=== PATIENT | male | born 1960 | race Caucasian/White ===

== ENCOUNTER 2018-03-14 11:14 | Outpatient (REF) | payer MEDICAID, SELFPAY ==
[2018-03-14 21:55] LABS: ALT 40 U/L (12-78); Alkaline Phosphatase 47 U/L (46-116); Anion Gap 10.3 mmol/L (3-11); BUN 14 mg/dL (7-18); Bilirubin, Total 0.4 mg/dL (0.2-1.0); CO2 25.7 mmol/L (21.0-32.0); CREATININE 0.96 mg/dL (0.70-1.30); Calcium 9.4 mg/dL (8.5-10.1); Chloride 102 mmol/L (98-107); Cholesterol 216 mg/dL (50-200); Glucose 217 mg/dL (70-100); HDL Cholesterol 45 mg/dL (40-60); LDL CHOLESTEROL 151 mg/dL (<100); Potassium 4.6 mmol/L (3.5-5.1); Sodium 138 mmol/L (136-145); TSH (W/Ref FT4) 1.89 uIU/mL (0.358-3.74); Total Protein 7.4 g/dL (6.4-8.2); Triglyceride 112 mg/dL (30-150)
[2018-03-14 22:05] LABS: AST 15 U/L (15-37)
[2018-03-14 23:03] LABS: Hemoglobin A1C 9.2 % (4.5-6.2)
== END 2018-03-14 11:34 ==
LOC: NCHCN 11:14
PROVIDERS: PCP Physician Assistant Medical; Visit Provider Physician Assistant Medical
DX: Z13.29 Encounter for screening for other suspected endocrine disorder (principal); Z13.1 Encounter for screening for diabetes mellitus; Z13.228 Encounter for screening for other metabolic disorders; Z13.220 Encounter for screening for lipoid disorders; Z00.00 Encounter for general adult medical examination without abnormal findings
CPT/HCPCS: 80053; 80061; 83721; 83036; 84443

== ENCOUNTER 2018-03-27 01:28 | Outpatient (CLI) | payer MEDICAID, SELFPAY ==
--- NOTE | 2018-03-27 11:00 | DIABASSESS_ITS ---
DESCRIPTION/ASSESSMENT: Jose Luis Brown presents with his with newly diagnosed type 2 diabetes with strong family history. Food Guidelines - Jose Luis states he has lost 18 pounds over the past 9 days by cutting back on sweets, portions and carbohydrate foods. His follows a keto-diet and he is eating her cooking. 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 Medication - he has started Metformin XR now at 500mg twice daily. A1c 9.2 Monitoring - does not have a glucometer. Desires monitoring. Risks/Related health history - he takes no other medication. He declines immunizations. Coping - denies stress other than usual family and work stress. Denies depression. INTERVENTION: DSME is provided in the following AADE 7 areas based on patients interest and assessment of needs: Food Guidelines - reviewed food guide in relation to his usual food intake. Physical Activity - discussed benefits and small changes initially. Medication - explained action of medication; dosing. Monitoring - reviewed procedure for monitoring blood sugar. He is monitored here with random blood sugar 159 with only coffee. Explained results re: goals and meaningful monitoring. Prevention - reviewed foot care; sick day care; immunizations rationale. Jose Luis and his are engaged in the conversation and encouraged to continue ACTION PLAN: Jose Luis will continue his current food plan and pay attention to carbohydrate content of meals and snacks. He will consider increased physical activity He will monitor his blood sugars based on the question he wishes to answer once he is monitoring comfortably This provider called [facility] for recommendation for Rx for glucometer, strips and lancets. Individual DSME/T __1__ units billed TIME IN: 1100 OUT: 1150 No DM group education series being offered at this time.
== END 2018-03-27 01:48 ==
PROVIDERS: PCP Physician Assistant Medical; Visit Provider Dietitian, Registered
DX: E11.9 Type 2 diabetes mellitus without complications (principal); Z71.3 Dietary counseling and surveillance
CPT/HCPCS: G0108

== ENCOUNTER 2018-09-25 20:53 | Outpatient (REF) | payer MEDICAID, SELFPAY ==
[2018-09-25 21:58] LABS: Calculated LDL 141; Cholesterol 204 mg/dL (50-200); HDL Cholesterol 47 mg/dL (40-60); Triglyceride 84 mg/dL (30-150)
[2018-09-25 22:15] LABS: Hemoglobin A1C 6.5 % (4.5-6.2)
== END 2018-09-25 21:13 ==
LOC: NCHCN 20:53
PROVIDERS: PCP Physician Assistant Medical; Visit Provider Physician Assistant Medical
DX: E11.9 Type 2 diabetes mellitus without complications (principal); E78.5 Hyperlipidemia, unspecified
CPT/HCPCS: 80061; 83721; 83036

== ENCOUNTER 2019-01-09 13:24 | Outpatient (REF) | payer MEDICAID, SELFPAY ==
[2019-01-09 22:01] LABS: ALT 32 U/L (16-63); AST 12 U/L (15-37); Albumin 4.1 g/dL (3.4-5.0); Alkaline Phosphatase 42 U/L (46-116); Anion Gap 9.6 mmol/L (3-11); BUN 14 mg/dL (7-18); Bilirubin, Total 0.5 mg/dL (0.2-1.0); CO2 27.4 mmol/L (21.0-32.0); CREATININE 0.91 mg/dL (0.70-1.30); Calcium 9.2 mg/dL (8.5-10.1); Calculated LDL 85 mg/dL; Chloride 103 mmol/L (98-107); Cholesterol 152 mg/dL (50-200); Glucose 125 mg/dL (70-100); HDL Cholesterol 49 mg/dL (40-60); Potassium 5.2 mmol/L (3.5-5.1); Sodium 140 mmol/L (136-145); Total Protein 7.3 g/dL (6.4-8.2); Triglyceride 94 mg/dL (30-150)
== END 2019-01-09 13:44 ==
LOC: NCHCN 13:24
PROVIDERS: PCP Physician Assistant Medical; Visit Provider Physician Assistant Medical
DX: E78.5 Hyperlipidemia, unspecified (principal)
CPT/HCPCS: 80053; 80061

== ENCOUNTER 2019-12-18 15:49 | Outpatient (REF) | payer MEDICAID, SELFPAY ==
[2019-12-18 19:51] LABS: ALT 27 U/L (16-63); AST 13 U/L (15-37); Albumin 3.9 g/dL (3.4-5.0); Alkaline Phosphatase 39 U/L (46-116); Anion Gap 6.1 mmol/L (3-11); BUN 15 mg/dL (7-18); Bilirubin, Total 0.4 mg/dL (0.2-1.0); CO2 28.9 mmol/L (21.0-32.0); CREATININE 0.79 mg/dL (0.70-1.30); Calcium 8.9 mg/dL (8.5-10.1); Calculated LDL 88 mg/dL (<100); Chloride 103 mmol/L (98-107); Cholesterol 154 mg/dL (<200); Glucose 139 mg/dL (74-106); HDL Cholesterol 48 mg/dL (40-60); Potassium 4.8 mmol/L (3.5-5.1); Sodium 138 mmol/L (136-145); Triglyceride 94 mg/dL (<150)
== END 2019-12-18 16:09 ==
LOC: NCHCN 15:49
PROVIDERS: PCP Physician Assistant Medical; Visit Provider Physician Assistant Medical
DX: E11.9 Type 2 diabetes mellitus without complications (principal); E78.5 Hyperlipidemia, unspecified
CPT/HCPCS: 80053; 80061

== ENCOUNTER 2021-03-17 17:40 | Outpatient (REF) | payer MEDICAID, SELFPAY ==
[2021-03-17 20:17] LABS: Hemoglobin A1C 6.9 % (<5.7)
[2021-03-17 20:32] LABS: ALT 35 U/L (16-63); AST 19 U/L (15-37); Alkaline Phosphatase 43 U/L (46-116); Anion Gap 11.5 mmol/L (3-11); BUN 13 mg/dL (7-18); Bilirubin, Total 0.4 mg/dL (0.2-1.0); CO2 26.5 mmol/L (21.0-32.0); CREATININE 0.8 mg/dL (0.70-1.30); Calculated LDL 97 mg/dL (<100); Chloride 103 mmol/L (98-107); Cholesterol 170 mg/dL (<200); Glucose 114 mg/dL (74-106); HDL Cholesterol 53 mg/dL (40-60); Potassium 4.7 mmol/L (3.5-5.1); Sodium 141 mmol/L (136-145); Triglyceride 100 mg/dL (<150)
== END 2021-03-17 17:41 | disposition home or self-care (01) ==
LOC: NCHCN 17:40
PROVIDERS: PCP Physician Assistant Medical; Visit Provider Physician Assistant Medical
DX: E11.9 Type 2 diabetes mellitus without complications (principal); E78.5 Hyperlipidemia, unspecified
CPT/HCPCS: 80053; 80061; 83036

== ENCOUNTER 2021-09-22 15:11 | Outpatient (REF) | payer MEDICAID, SELFPAY ==
[2021-09-22 15:30] LABS: Hemoglobin A1C 6.8 % (<5.7)
[2021-09-22 15:42] LABS: ALT 30 U/L (16-63); Albumin 3.9 g/dL (3.4-5.0); Alkaline Phosphatase 52 U/L (46-116); Anion Gap 9.8 mmol/L (3-11); BUN 16 mg/dL (7-18); Bilirubin, Total 0.7 mg/dL (0.2-1.0); CO2 25.2 mmol/L (21.0-32.0); CREATININE 0.9 mg/dL (0.70-1.30); Calcium 8.9 mg/dL (8.5-10.1); Chloride 105 mmol/L (98-107); Ferritin 82 ng/mL (26-388); Glucose 135 mg/dL (74-106); Magnesium 2.2 mg/dL (1.8-2.4); Potassium 4.3 mmol/L (3.5-5.1); Sodium 140 mmol/L (136-145); Total Protein 7.4 g/dL (6.4-8.2)
[2021-09-22 16:09] LABS: AST 15 U/L (15-37); Creatine Kinase 109 U/L (39-308)
== END 2021-09-22 15:12 | disposition home or self-care (01) ==
LOC: NCHCN 15:11
PROVIDERS: PCP Physician Assistant Medical; Visit Provider Physician Assistant Medical
DX: E11.9 Type 2 diabetes mellitus without complications (principal); G25.81 Restless legs syndrome
CPT/HCPCS: 80053; 82550; 82728; 83036; 83735

== ENCOUNTER 2022-04-27 14:14 | Outpatient (REF) | payer MEDICAID, SELFPAY ==
[2022-04-27 20:11] LABS: ALT 28 U/L (16-63); AST 18 U/L (15-37); Alkaline Phosphatase 45 U/L (46-116); Anion Gap 5.6 mmol/L (3-11); BUN 12 mg/dL (7-18); Bilirubin, Total 0.4 mg/dL (0.2-1.0); CO2 30.4 mmol/L (21.0-32.0); CREATININE 0.8 mg/dL (0.70-1.30); Calcium 9.3 mg/dL (8.5-10.1); Calculated LDL 150 mg/dL (<100); Chloride 104 mmol/L (98-107); Cholesterol 230 mg/dL (<200); Estimated GFR 101.32 (mL/min/1.73m2); Glucose 138 mg/dL (74-106); HDL Cholesterol 58 mg/dL (40-60); Potassium 4.4 mmol/L (3.5-5.1); Sodium 140 mmol/L (136-145); Total Protein 7.7 g/dL (6.4-8.2); Triglyceride 113 mg/dL (<150)
[2022-04-29 14:26] LABS: Hemoglobin A1C 7.5 % (<5.7)
== END 2022-04-27 14:15 | disposition home or self-care (01) ==
LOC: NCHCN 14:14
PROVIDERS: PCP Physician Assistant Medical; Visit Provider Physician Assistant Medical
DX: E11.9 Type 2 diabetes mellitus without complications (principal); E78.5 Hyperlipidemia, unspecified
CPT/HCPCS: 80053; 80061; 83036

== ENCOUNTER 2023-01-25 15:37 | Outpatient (REF) | payer MEDICAID, SELFPAY ==
[2023-01-25 16:16] LABS: Hemoglobin A1C 6.8 % (<5.7)
[2023-01-25 16:21] LABS: ALT 27 U/L (16-63); AST 13 U/L (15-37); Albumin 3.7 g/dL (3.4-5.0); Alkaline Phosphatase 45 U/L (46-116); Anion Gap 8.1 mmol/L (3-11); BUN 14 mg/dL (7-18); Bilirubin, Total 0.5 mg/dL (0.2-1.0); CO2 24.9 mmol/L (21.0-32.0); CREATININE 0.8 mg/dL (0.70-1.30); Calcium 9.2 mg/dL (8.5-10.1); Calculated LDL 98 mg/dL (<100); Chloride 104 mmol/L (98-107); Cholesterol 170 mg/dL (<200); Estimated GFR 101.32 (mL/min/1.73m2); Glucose 142 mg/dL (74-106); HDL Cholesterol 55 mg/dL (40-60); Potassium 4.5 mmol/L (3.5-5.1); Sodium 137 mmol/L (136-145); Total Protein 7.5 g/dL (6.4-8.2); Triglyceride 85 mg/dL (<150)
== END 2023-01-25 15:38 | disposition home or self-care (01) ==
LOC: NCHCN 15:37
PROVIDERS: PCP Physician Assistant Medical; Visit Provider Physician Assistant Medical
DX: E11.9 Type 2 diabetes mellitus without complications (principal)
CPT/HCPCS: 80053; 80061; 83036

== ENCOUNTER 2023-11-01 10:00 | Outpatient (REF) | payer MEDICAID, SELFPAY ==
[2023-11-01 16:02] LABS: Hemoglobin A1C 7.1 % (<5.7)
[2023-11-01 16:04] LABS: ALT 22 U/L (16-63); AST 13 U/L (15-37); Albumin 3.9 g/dL (3.4-5.0); Alkaline Phosphatase 48 U/L (46-116); Anion Gap 9.4 mmol/L (3-11); BUN 11 mg/dL (7-18); Bilirubin, Total 0.41 mg/dL (0.2-1.0); CO2 27.6 mmol/L (21.0-32.0); CREATININE 0.9 mg/dL (0.70-1.30); Calcium 9.5 mg/dL (8.5-10.1); Calculated LDL 89 mg/dL (<100); Chloride 106 mmol/L (98-107); Cholesterol 165 mg/dL (<200); Estimated GFR 97.17 (mL/min/1.73m2); Glucose 142 mg/dL (74-106); HDL Cholesterol 58 mg/dL (40-60); Potassium 4.8 mmol/L (3.5-5.1); Sodium 143 mmol/L (136-145); Total Protein 7.6 g/dL (6.4-8.2); Triglyceride 94 mg/dL (<150)
== END 2023-11-01 10:01 | disposition home or self-care (01) ==
LOC: NCHCN 10:00
PROVIDERS: PCP Physician Assistant Medical; Visit Provider Physician Assistant Medical
DX: E11.9 Type 2 diabetes mellitus without complications (principal); E78.5 Hyperlipidemia, unspecified
CPT/HCPCS: 80053; 80061; 83036

== ENCOUNTER → 2023-11-15 00:54 | Outpatient (CLI) | payer MEDICAID, SELFPAY ==
--- NOTE | 2023-11-15 | DI.RAD_ITS ---
Exam(s) XR KNEE LT 3V AP,LAT,ROXY EXAM: XR KNEE LT 3V AP,LAT,ROXY CLINICAL HISTORY: LT KNEE PAIN, M25.562. TECHNIQUE: 2D digital imaging was performed. Three views. COMPARISON: CR RIGHT KNEE 3 VIEWS from 12/21/2012 FINDINGS: BONES: No acute fracture is present. No bony destructive lesion is seen. Enthesophyte at quadricep s insertion. JOINTS: The knee is normally aligned. No joint effusion is seen. [id number] narrowing of the medial femoral tibial joint space. Mild periarticular spurring throughout. SOFT TISSUE: Normal. 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 Mild degenerative changes elsewhere. DATA REPOSITORY: RADIATION DOSE DELIVERED:
== END ==
PROVIDERS: PCP Physician Assistant Medical; Visit Provider Physician Assistant Medical
DX: M25.562 Pain in left knee (principal); M17.12 Unilateral primary osteoarthritis, left knee
CPT/HCPCS: 73562

== ENCOUNTER 2024-12-04 15:25 | Outpatient (REF) | payer MEDICAID, SELFPAY ==
[2024-12-04 16:59] LABS: Hemoglobin A1C 6.7 % (<5.7)
[2024-12-04 17:07] LABS: ALT 25 U/L (16-63); AST 15 U/L (15-37); Albumin 3.9 g/dL (3.4-5.0); Alkaline Phosphatase 46 U/L (46-116); Anion Gap 10.5 mmol/L (3-11); BUN 12 mg/dL (7-18); Bilirubin, Total 0.5 mg/dL (0.2-1.0); CO2 26.5 mmol/L (21.0-32.0); Calcium 9.1 mg/dL (8.5-10.1); Calculated LDL 107 mg/dL (<100); Chloride 104 mmol/L (98-107); Cholesterol 177 mg/dL (<200); Estimated GFR 104.18 (mL/min/1.73m2); Glucose 117 mg/dL (74-106); HDL Cholesterol 53 mg/dL (>or=40); Potassium 4.9 mmol/L (3.5-5.1); Sodium 141 mmol/L (136-145); Total Protein 7.0 g/dL (6.4-8.2); Triglyceride 85 mg/dL (<150)
== END 2024-12-04 15:26 | disposition home or self-care (01) ==
LOC: NCHCN 15:25
PROVIDERS: PCP Physician Assistant Medical; Visit Provider Physician Assistant Medical
DX: E11.9 Type 2 diabetes mellitus without complications (principal); E78.5 Hyperlipidemia, unspecified
CPT/HCPCS: 80053; 80061; 83036